=== PATIENT | female | born 1950 | race Caucasian/White ===

== ENCOUNTER → 2017-07-22 | Outpatient (CLI) | payer OTHER ==
[~2017-07-22] MED LIST: ALIGN4 MG PO; ASPIR 8181 M1 PO; CRESTOR; CRESTOR20 MG PO; DOMP10T PO; KAPIDEX60 MG PO; LEXAPRO5 MG PO; LISINOPRIL; METOPROLOL; THERAGRAN1 TABLET PO; Tylenol Regular Stre PO; VITAMIN D1000 INTUN PO; Vitamin B-12 PO; ZESTRIL2.5 MG PO
== END | disposition home or self-care (01) ==
DX: K22.5 Diverticulum of esophagus, acquired (principal)
CPT/HCPCS: 92611 GN; G8996 GN; G8997 GN; G8998 GN